=== PATIENT | male | born 1970 | race Caucasian/White ===

== ENCOUNTER 2019-10-09 14:52 | Emergency (ER) | payer OTHER ==
[~2019-10-09] VITALS: Ht 188 cm; Wt 94.3 kg
--- NOTE | 2019-10-09 16:16 | REPVR ---
PROCEDURE INFORMATION: Exam: US Duplex Right Lower Extremity Veins, Limited Exam date and time: 10/09/2019 4:06 PM Age: 49 years old Clinical indication: Pain; Leg, lower; Right; Additional info: Right calf swelling TECHNIQUE: Imaging protocol: Real-time Duplex ultrasound of the Right Lower Extremity with 2-D blair scale, color Doppler flow and spectral waveform analysis with image documentation. Limited exam was focused on the right lower extremity veins. COMPARISON: No relevant prior studies available. FINDINGS: Right deep veins: Unremarkable. The common femoral, femoral, proximal profunda femoral and popliteal veins are patent without thrombus. Normal Doppler waveforms. Normal compressibility and/or augmentation response. Right superficial veins: Unremarkable. Saphenofemoral junction is patent without thrombus. Soft tissues: Unremarkable. IMPRESSION: No deep venous thrombus demonstrated in the right lower extremity. Electronically signed by: Mohan Nguyễn On 10/09/2019 16:17:10 PM
[2019-10-09 16:59] VITALS: BP 139/81
== END 2019-10-09 17:00 | disposition home or self-care (01) ==
LOC: M ED 14:52
DX: R22.41 Localized swelling, mass and lump, right lower limb (principal); M79.661 Pain in right lower leg